=== PATIENT | female | born 1950 | race American Indian/Alaskan Native ===

== ENCOUNTER 2017-05-08 08:33 | Outpatient (CLI) | payer MEDICARE, OTHER ==
--- NOTE | 2017-05-08 15:57 | Mammography Report ---
BILATERAL DIGITAL SCREENING MAMMOGRAM with CAD: 05/08/17 08:33:00 CLINICAL: Routine screening. COMPARISON:05/07/16 FINDINGS: The breasts are almost entirely fatty. No mass, architectural distortion or suspicious calcifications. IMPRESSION: No mammographic evidence of malignancy. BI-RADS CATEGORY: 2 -- Benign RECOMMENDATION: Routine mammographic screening in one year. COMMENT: Patient follow-up letters are generated by our [employer] application.
== END 2017-05-08 08:34 | disposition home or self-care (01) ==
LOC: SPVWC 08:33
PROVIDERS: ATTEND Internal Medicine
DX: Z12.31 Encounter for screening mammogram for malignant neoplasm of breast (principal)
CPT/HCPCS: 77067; G0202

== ENCOUNTER 2018-05-09 11:16 | Outpatient (CLI) | payer MEDICARE, OTHER ==
--- NOTE | 2018-05-09 16:27 | Mammography Report ---
BILATERAL MAMMOGRAM: FINDINGS: The breasts are almost entirely fat (<25% glandular). No mass, distortion, suspicious calcification, or skin change is seen. There is a biopsy marker in the medial left breast. The findings are unchanged compared to prior exam in April 2017. CAD was utilized. IMPRESSION: Negative mammogram. There is no mammographic evidence of malignancy. RECOMMENDATION: Follow-up per ACS guidelines. BI-RADS CATEGORY: 1 = Negative ACR BI-RADS MAMMOGRAPHIC CODES: 0 = Needs additional imaging evaluation; 1 = Negative; 2 = Benign; 3 = Probably benign; 4 = Suspicious; 5 = Malignant; 6 = Known biopsy-proven malignancy COMMENT: 1. Dense breast tissue, i.e., adenosis, fibrocystic changes, etc., may obscure an underlying neoplasm. 2. Approximately 10% of cancers are not detected with mammography. 3. A negative mammography report should not delay biopsy if a clinically suspicious mass is present. COMMENT: Patient follow-up letters are generated in [employer].
== END 2018-05-09 11:17 | disposition home or self-care (01) ==
LOC: SPVWC 11:16
PROVIDERS: ATTEND Internal Medicine
DX: Z12.31 Encounter for screening mammogram for malignant neoplasm of breast (principal)
CPT/HCPCS: 77067

== ENCOUNTER 2019-05-11 08:16 | Outpatient (CLI) | payer MEDICARE, OTHER ==
--- NOTE | 2019-05-11 09:07 | Mammography Report ---
BILATERAL MAMMOGRAM: FINDINGS: The breasts are almost entirely fat (<25% glandular). No mass, distortion, suspicious calcification, or skin change is seen. There is a biopsy marker in the medial left breast. There are no interval changes compared to prior exams dating back to April 2017. CAD was utilized. IMPRESSION: Negative mammogram. There is no mammographic evidence of malignancy. RECOMMENDATION: Follow-up per ACS guidelines. BI-RADS CATEGORY: 1 = Negative ACR BI-RADS MAMMOGRAPHIC CODES: 0 = Needs additional imaging evaluation; 1 = Negative; 2 = Benign; 3 = Probably benign; 4 = Suspicious; 5 = Malignant; 6 = Known biopsy-proven malignancy COMMENT: 1. Dense breast tissue, i.e., adenosis, fibrocystic changes, etc., may obscure an underlying neoplasm. 2. Approximately 10% of cancers are not detected with mammography. 3. A negative mammography report should not delay biopsy if a clinically suspicious mass is present. COMMENT: Patient follow-up letters are generated in [employer].
== END 2019-05-11 08:17 | disposition home or self-care (01) ==
LOC: SPVWC 08:16
PROVIDERS: ATTEND Internal Medicine
DX: Z12.31 Encounter for screening mammogram for malignant neoplasm of breast (principal)
CPT/HCPCS: 77067

== ENCOUNTER 2019-05-13 14:20 | Outpatient (CLI) | payer MEDICARE, OTHER ==
--- NOTE | 2019-05-13 16:08 | Mammography Report ---
BONE DEXA:05/13/19 14:20:00 CLINICAL: Postmenopausal. No comparison. TECHNIQUE: Two site bone DEXA performed on an Hologic scanner. FINDINGS: The average BMD of the lumbar spine L1-L4 is 1.005g/cm squared with a T-score of -1.3 and a Z-score of +1.1. The average BMD of the left hip is 0.902g/cm squared with a T-score of -0.8 and a Z-score of +0.3. IMPRESSION: WHO classification: Osteopenia with increased fracture risk based on both spine and left hip measurements. RECOMMENDATION: Clinical correlation and routine screening. DEFINITIONS: BMD = Bone Mineral Density T-score = BMD related to mean peak bone mass of young adult (mean expressed in Standard Deviation) Z-score = Age matched BMD expressed in SD World Health Organization (WHO) Diagnostic Criteria Normal T-score > -1 SD Osteopenia T-score between -1 and -2.4 SD Osteoporosis T-score -2.5 SD or below NOTE: BMD is not the only risk factor for fracture. One should also consider factors such as the patient's age, risk of falling, previous osteoporotic fracture, family history of osteoporotic fractures, current smoker, and low body weight. Z-scores are not calculated if >80 years of age.
== END 2019-05-13 14:21 | disposition home or self-care (01) ==
LOC: SPVWC 14:20
PROVIDERS: ATTEND Internal Medicine
DX: M85.88 Other specified disorders of bone density and structure, other site (principal); M81.0 Age-related osteoporosis without current pathological fracture; Z78.0 Asymptomatic menopausal state
CPT/HCPCS: 77080

== ENCOUNTER 2020-05-17 09:20 | Outpatient (CLI) | payer MEDICARE, OTHER ==
--- NOTE | 2020-05-17 15:12 | Mammography Report ---
DIGITAL SCREENING MAMMOGRAM WITH CAD, 05/17/2020 INDICATION: Routine screening mammography. TECHNIQUE: Digital bilateral 2D mammography was obtained in the craniocaudal and mediolateral obliq ue projections. This examination was interpreted with the benefit of Computer-Aided Detection analysi s. COMPARISON: 05/11/2019. FINDINGS: Breast Density: The breasts are almost entirely fatty. There is no evidence of dominant mass, suspicious calcifications or architectural distortion in eithe r breast. Mild bilateral nodularity is stable. IMPRESSION: Follow up recommendation: Routine yearly BI-RADS Category 2: Benign. A "normal" or negative report should not discourage follow up or biopsy of a clinically significant f inding. A written summary of these findings will be mailed to the patient. The patient will be entered into a mammography reporting system which will generate a reminder letter for the patient's next appointmen t at the appropriate interval. The [employer] recommends yearly mammograms starting at age 40 and continuing as l basil as a woman is in good health. Breast MRI is recommended for women with an approximate 20-25% or greater lifetime risk of breast cancer, including women with a strong family history of breast or ova larisa cancer or who have been treated for Hodgkin's disease. Signer Name: Sidney Montiel MD Signed: 05/17/2020 3:07 PM Workstation Name: [email or web address]
== END 2020-05-17 09:21 | disposition home or self-care (01) ==
LOC: SPVWC 09:20
PROVIDERS: ATTEND Internal Medicine
DX: Z12.31 Encounter for screening mammogram for malignant neoplasm of breast (principal); N64.89 Other specified disorders of breast
CPT/HCPCS: 77067

== ENCOUNTER 2021-05-18 08:52 | Outpatient (CLI) | payer MEDICARE, OTHER ==
--- NOTE | 2021-05-18 09:38 | Mammography Report ---
DIGITAL SCREENING MAMMOGRAM WITH CAD, 05/18/2021 INDICATION: Routine screening mammography. TECHNIQUE: Digital bilateral 2D mammography was obtained in the craniocaudal and mediolateral obliq ue projections. This examination was interpreted with the benefit of Computer-Aided Detection analysi s. COMPARISON: 05/17/2020 FINDINGS: Breast Density: The breasts are almost entirely fatty. There is no evidence of dominant mass, suspicious calcifications or architectural distortion in eithe r breast. Small bilateral benign-appearing nodules remain. IMPRESSION: Follow up recommendation: Routine yearly BI-RADS Category 2: Benign. A "normal" or negative report should not discourage follow up or biopsy of a clinically significant f inding. A written summary of these findings will be mailed to the patient. The patient will be entered into a mammography reporting system which will generate a reminder letter for the patient's next appointmen t at the appropriate interval. The [employer] recommends yearly mammograms starting at age 40 and continuing as l basil as a woman is in good health. Breast MRI is recommended for women with an approximate 20-25% or greater lifetime risk of breast cancer, including women with a strong family history of breast or ova larisa cancer or who have been treated for Hodgkin's disease. Signer Name: Sidney Montiel MD Signed: 05/18/2021 9:33 AM Workstation Name: [employer]
== END 2021-05-18 08:53 | disposition home or self-care (01) ==
LOC: SPVWC 08:52
PROVIDERS: ATTEND Internal Medicine
DX: Z12.31 Encounter for screening mammogram for malignant neoplasm of breast (principal); N64.89 Other specified disorders of breast
CPT/HCPCS: 77067

== ENCOUNTER 2022-05-22 09:01 | Outpatient (CLI) | payer MEDICARE, OTHER ==
--- NOTE | 2022-05-22 10:49 | Mammography Report ---
DEXA BONE DENSITY SCAN INDICATION / CLINICAL INFORMATION: SCREENING. 72 years Female COMPARISON: 05/13/2019 LUMBAR SPINE, L1-L4: - Bone mineral density (BMD) = 1.008 g/cm2. - T-score = -1.3 - Z-score = 1.3 Change (%) since most recent prior (if available): 0.2 LEFT HIP, NECK : - Bone mineral density (BMD) = 0.713 g/cm2. - T-score = -1.7 - Z-score = -0.1 Change (%) since most recent prior (if available): -6.0 IMPRESSION: 1. WHO Classification: Osteopenia. Fracture Risk: Increased. 2. 10-Year Fracture Risk (FRAX) = Major Osteoporotic Not reported.% / Hip: Not reported.% FRAX generally not reported for patients with normal or osteoporotic BMD, in [id number] ita ents younger than age 50, or in patients undergoing pharmacotherapy BMD Reporting Guidelines (ISCD, 2015) BMD Reporting in Postmenopausal Women and in Men Age 50 and Older - T-scores are preferred. - The WHO densitometric classification is applicable. BMD Reporting in Females Prior to Menopause and in Males Younger Than Age 50 - Z-scores, not T-scores, are preferred. This is particularly important in children. - A Z-score of -2.0 or lower is defined as below the expected range for age, and a Z-score above -2.0 is within the expected range for age. - Osteoporosis cannot be diagnosed in men under age 50 on the basis of BMD alone. - The WHO diagnostic criteria may be applied to women in the menopausal transition. http://www.iscd.org/official-positions/0882-mlmf-dfhkxbpg-positions-adult/ Signer Name: Eze Ramirez DO Signed: 05/22/2022 10:44 AM Workstation Name: [email or web address]
--- NOTE | 2022-05-23 11:05 | Mammography Report ---
DIGITAL SCREENING MAMMOGRAM WITH CAD, 05/22/2022 CLINICAL INFORMATION / INDICATION: Routine screening mammography. TECHNIQUE: Digital bilateral 2D mammography was obtained in the craniocaudal and mediolateral obliqu e projections. This examination was interpreted with the benefit of Computer-Aided Detection analysis . COMPARISON: 05/17/2020 FINDINGS: Breast Density: The breasts are almost entirely fatty. No dominant mass, suspicious calcifications, or architectural distortion in the right breast. Left breast biopsy clip. In the left breast at approximately 9:00, anterior depth, there is a small cluster of calcifications. The calcifications have increased in number and require further evaluation with magnification views. IMPRESSION: Increasing cluster of calcifications in the left breast at 9:00. Recommend left magnifica tion views. Follow up recommendation: Special View: Magnification BI-RADS Category 0: INCOMPLETE. Needs additional imaging evaluation and/or prior mammograms for sophy rison. A "normal" or negative report should not discourage follow up or biopsy of a clinically significant f inding. A written summary of these findings will be mailed to the patient. The patient will be entered into a mammography reporting system which will generate a reminder letter for the patient's next appointmen t at the appropriate interval. The [employer] recommends yearly mammograms starting at age 40 and continuing as l basil as a woman is in good health. Breast MRI is recommended for women with an approximate 20-25% or greater lifetime risk of breast cancer, including women with a strong family history of breast or ova larisa cancer or who have been treated for Hodgkin's disease. Signer Name: Trista Grigsby MD Signed: 05/23/2022 11:01 AM Workstation Name: [employer]
== END 2022-05-22 09:02 | disposition home or self-care (01) ==
LOC: SPVWC 09:01
PROVIDERS: ATTEND Internal Medicine
DX: Z12.31 Encounter for screening mammogram for malignant neoplasm of breast (principal); N64.89 Other specified disorders of breast; M85.88 Other specified disorders of bone density and structure, other site
CPT/HCPCS: 77067; 77080

== ENCOUNTER 2022-07-31 14:31 | Outpatient (CLI) | payer MEDICARE, OTHER ==
--- NOTE | 2022-07-31 15:58 | Mammography Report ---
DIGITAL DIAGNOSTIC MAMMOGRAM CONVENTIONAL, 07/31/2022 CLINICAL INFORMATION / INDICATION: Follow-up of indeterminate developing left breast calcifications. CALCIFICATIONS LEFT BREAST R92.1 TECHNIQUE: Digital left mammographic imaging was performed. Magnification views were obtained. COMPARISON: Screening mammograms from 05/22/2022 and 05/18/2021 FINDINGS: Breast Density: The breast is almost entirely fatty. A previously reported cluster of developing calcifications in the 9:00 left breast is again seen rodolfo uring 6 mm and located just anterior to the site of prior biopsy. No new significant abnormality is i dentified. IMPRESSION: Developing calcifications in the 9:00 left breast as above should be further evaluated wi stereotactic biopsy. Follow up recommendation: Biopsy BI-RADS Category 4: SUSPICIOUS FOR MALIGNANCY. A "normal" or negative report should not discourage follow up or biopsy of a clinically significant f inding. A written summary of these findings will be mailed to the patient. The patient will be entered into a mammography reporting system which will generate a reminder letter for the patient's next appointmen t at the appropriate interval. According to the [employer], yearly mammograms are recommended starting at age 40 and continuing as long as a woman is in good health. Breast MRI is recommended for women with an graham roximately 20-25% or greater lifetime risk of breast cancer, including women with a strong family his tory of breast or ovarian cancer and women who have been treated for Hodgkin's disease. Signer Name: Kendall Harris MD Signed: 07/31/2022 3:54 PM Workstation Name: [employer]
== END 2022-07-31 14:32 | disposition home or self-care (01) ==
LOC: MAMMO 14:31 → SPVWC 14:32
PROVIDERS: ATTEND Internal Medicine
DX: R92.1 Mammographic calcification found on diagnostic imaging of breast (principal)